=== PATIENT | male | born 1940 | race Caucasian/White ===

== ENCOUNTER 2021-07-12 20:42 | Inpatient (IN) | payer MEDICARE, OTHER ==
[~2021-07-12] VITALS: Ht 175.3 cm; Wt 102.2 kg
--- NOTE | 2021-07-12 21:00 | NUR ---
Dr. Warren at bedside.
--- NOTE | 2021-07-12 21:04 | NUR ---
RT at bedside.
--- NOTE | 2021-07-12 21:10 | NUR ---
Xray at bedside.
[2021-07-12] MEDS ORDERED: PANT20TA2 PO (22:13)
[2021-07-12] MEDS ORDERED: CHOL1TAB4 PO (22:13)
[2021-07-12] MEDS ORDERED: ATOR40TA PO (22:13)
[2021-07-12] MEDS ORDERED: CRAN425C6 PO (22:13)
[2021-07-12] MEDS ORDERED: ACET-73 PO (22:13)
[2021-07-12] MEDS ORDERED: ACET-2154 PO (22:13)
[2021-07-12] MEDS ORDERED: MIRT-93 PO (22:13)
[2021-07-12] MEDS ORDERED: GUAI237L83 PO (22:13)
[2021-07-12] MEDS ORDERED: ASCO500C18 PO (22:13)
[2021-07-12] MEDS ORDERED: DOCU100C36 PO (22:13)
[2021-07-12] MEDS ORDERED: NA P133E RC (22:13)
[2021-07-12] MEDS ORDERED: MAGN400O6 PO (22:13)
[2021-07-12] MEDS ORDERED: THIA100T74 PO (22:13)
[2021-07-12] MEDS ORDERED: AMIO200T5 PO (22:13)
[2021-07-12] MEDS ORDERED: LEVO75TA7 PO (22:13)
[2021-07-12] MEDS ORDERED: MULT-594 PO (22:13)
[2021-07-12] MEDS ORDERED: GUAI5SYR4 GT (22:13)
[2021-07-12] MEDS ORDERED: BISA10SU61 RC (22:13)
[2021-07-12] MEDS ORDERED: DEXT15DR6 EACHEYE (22:13)
[2021-07-12] MEDS ORDERED: PIPERACILLIN SODIUM/TAZOBACTAM 3.375 G in IV DEXTROSE 5% 50 ML IV ONE (22:45)
[2021-07-12 22:52] LABS: ALANINE AMINOTRANSFERASE 22 U/L (16-63); ALKALINE PHOSPHATASE 128 U/L (50-136); ASPARTATE AMINOTRANSFERASE 35 U/L (15-37); BILIRUBIN,TOTAL 0.9 mg/dL (0.2-1.0); CARBON DIOXIDE 18 mmol/L (21-32); CHLORIDE 119 mmol/L (98-107); CREATINE KINASE, TOTAL 141 U/L (39-308); CREATININE 2.1 mg/dL (0.6-1.3); GLUCOSE 179 mg/dL (74-106); LACTATE DEHYDROGENASE 385 U/L (85-227); POTASSIUM 3.5 mmol/L (3.5-5.1); TOTAL PROTEIN, SERUM 8.1 g/dL (6.4-8.2); UREA NITROGEN, BLOOD 62 mg/dL (7-18)
[2021-07-12 22:59] LABS: HEMATOCRIT 41.1 % (36.7-47.1); MEAN CORPUSCULAR HEMOGLOBIN 29.3 uug (23.8-33.4); MEAN CORPUSCULAR VOLUME 89.4 fL (73.0-96.2); PLATELET COUNT (AUTO) 160 K/uL (152-348)
[2021-07-12] MEDS ORDERED: PIPERACILLIN/TAZOBACTAM/D5W 0 ML IV ONE (23:02)
[2021-07-12] MEDS ORDERED: IV D5W 1000ML 1,000 ML IV ONE (23:15)
--- NOTE | 2021-07-12 23:50 | NUR ---
Family at bedside.
[2021-07-13] MEDS ORDERED: ONDANSETRON 4 MG/2 ML VIAL IV ONE (00:15)
[2021-07-13] MEDS ORDERED: MORPHINE SULFATE 4 MG/1 ML DISP.SYRIN IV ONE (00:15)
[2021-07-13] MEDS ORDERED: MORPHINE SULFATE 4 MG/1 ML DISP.SYRIN ONE (00:23)
[2021-07-13] MEDS ORDERED: ONDANSETRON 4 MG/2 ML VIAL ONE (00:23)
[2021-07-13] MEDS ORDERED: ENOXAPARIN SODIUM 60 MG/0.6 ML DISP.SYRIN SQ ONE ×3 (00:30→21:11)
--- NOTE | 2021-07-13 00:30 | NUR ---
Dr. Warren spoke with patient's son, Agusto Guardado, per son, pt is DNR/DNI.
--- NOTE | 2021-07-13 00:45 | NUR ---
Called [facility] to page Dr. Petty.
--- NOTE | 2021-07-13 01:14 | NUR ---
Dr. Warren on panel call with Dr. Dinah Petty.
[2021-07-13] MEDS ORDERED: MAGNESIUM HYDROXIDE 30 ML LIQUID UDC PO PRN ×2 (01:45→02:00)
[2021-07-13] MEDS ORDERED: BISACODYL 10 MG SUPP.RECT RC PRN (01:45)
[2021-07-13] MEDS ORDERED: FLEET ENEMA 133 ML BOTTLE RC PRN (01:45)
--- NOTE | 2021-07-13 01:55 | NUR ---
PATIENT PLACED ON BI/PAP @ 21:12 - WITH FULL LARGE MASK, ORDER BY DR ISAACS, PT NOT VERY RESPONSIVE, INITIAL SETTINGS ON BI/PAP 15.5 \ RR20,100%, PT BREATHING VERY RAPID, SAT 88-93% .Ty SHIRLEYP Addendum: 07/13/21 at 0157 by HENRIQUE DENIS RT Amended: Links added.
[2021-07-13] MEDS ORDERED: MORPHINE SULFATE 2 MG/1 ML DISP.SYRIN IV PRN (02:00)
[2021-07-13] MEDS ORDERED: Z GUARD REMEDY PASTE 57 GM TUBE TOP PRN (02:00)
[2021-07-13] MEDS ORDERED: IV 1/2NS 1000 ML 1,000 ML IV PRN (02:00)
[2021-07-13] MEDS ORDERED: PIPERACILLIN SODIUM/TAZOBACTAM 3.375 G in IV DEXTROSE 5% 50 ML IV SCH ×2 (05:00→14:00)
[2021-07-13] MEDS: PANTOPRAZOLE SODIUM 40 MG TABLET.DR PO SCH (07:00)
--- NOTE | 2021-07-13 07:00 | NUR ---
recieved pt in bed, monitor on, reading sinus rate of 105. pt on bipap, 100%, 22, epap 6, ipap 10. no sign of distress. pt non- responsive to verbal stimuli.
[2021-07-13] MEDS ORDERED: PIPERACILLIN/TAZOBACTAM/D5W 50 ML IV ONE (08:24)
[2021-07-13] MEDS: PIPERACILLIN SODIUM/TAZOBACTAM 3.375 G in IV DEXTROSE 5% 100 ML IV SCH ×2 (08:28→16:36)
[2021-07-13] MEDS ORDERED: DEXAMETHASONE SOD PHOSPHATE 10 MG INJ ONE ×2 (08:38→09:19)
[2021-07-13] MEDS: AMIODARONE HCL 200 MG TABLET PO SCH (09:00)
[2021-07-13] MEDS: DOCUSATE SODIUM 100 MG CAPSULE PO SCH ×2 (09:00→17:00)
[2021-07-13] MEDS: DEXAMETHASONE SOD PHOSPHATE 4 MG INJ IV SCH (09:11)
[2021-07-13 14:32] LABS: CARBON DIOXIDE 17 mmol/L (21-32); CHLORIDE 121 mmol/L (98-107); CREATININE 3.2 mg/dL (0.6-1.3); GLUCOSE 215 mg/dL (74-106); POTASSIUM 4.3 mmol/L (3.5-5.1)
[2021-07-13 14:34] LABS: UREA NITROGEN, BLOOD 81 mg/dL (7-18)
[2021-07-13 15:10] LABS: ABG HCO3 20.7 mmol/L; ABG PCO2 32.9 mmHg (35.0-45.0); ABG PH 7.416 (7.350-7.450); ABG PO2 161.6 mmHg (75.0-100.0); ABG SITE LEFT RADIAL; ABG TOTAL HEMOGLOBIN 13.3 G/dL (13.5-18.0); COHb 0.2 % (0.5-1.5); MetHb 0.1 % (0.0-1.5); VENT MODE BIPAP
[2021-07-13] MEDS: ATORVASTATIN 40 MG TABLET PO SCH (18:00)
[2021-07-13 18:04] LABS: HEMATOCRIT 38.4 % (36.7-47.1); MEAN CORPUSCULAR HEMOGLOBIN 29.3 uug (23.8-33.4); MEAN CORPUSCULAR VOLUME 87.8 fL (73.0-96.2); PLATELET COUNT (AUTO) 149 K/uL (152-348)
[2021-07-13] MEDS ORDERED: IV D5W 1000ML 1,000 ML IV PRN (19:45)
[2021-07-13] MEDS ORDERED: VANCOMYCIN IV 1,000 MG in IV DEXTROSE 5% 250 ML IV ONE (20:15)
[2021-07-13] MEDS ORDERED: ENOXAPARIN SODIUM 40 MG/0.4 ML DISP.SYRIN SQ SCH (21:00)
[2021-07-13] MEDS ORDERED: VANCOMYCIN IV 200 ML ONE (21:11)
[2021-07-13] MEDS: ENOXAPARIN SODIUM 60 MG/0.6 ML DISP.SYRIN SQ SCH (21:14)
[2021-07-14] MEDS ORDERED: PIPERACILLIN/TAZOBACTAM/D5W 50 ML IV ONE (00:59)
[2021-07-14] MEDS: PIPERACILLIN SODIUM/TAZOBACTAM 3.375 G in IV DEXTROSE 5% 100 ML IV SCH (00:59)
--- NOTE | 2021-07-14 02:28 | NUR ---
PATIENT REMAINS ON BI/PAP, SETTINGS, 15/5 , RR20, FIO2 @ 100%, ADJUST MASK AT TIMES, PT TENDS TO BREATH RAPID AT TIMES.Ty SHIRLEYP Addendum: 07/14/21 at 0229 by HENRIQUE DENIS RT Amended: Links added.
[2021-07-14 05:42] LABS: ABG BASE EXCESS -3.5 mmol/L; ABG HCO3 20.8 mmol/L; ABG PCO2 35.2 mmHg (35.0-45.0); ABG PH 7.389 (7.350-7.450); ABG PO2 105.8 mmHg (75.0-100.0); ABG SITE LEFT FEMORAL; MetHb 0.2 % (0.0-1.5); O2Hb 97.8 % (94.0-97.0); VENT MODE BIPAP
[2021-07-14 06:01] LABS: HEMATOCRIT 38.8 % (36.7-47.1); MEAN CORPUSCULAR VOLUME 89.4 fL (73.0-96.2); PLATELET COUNT (AUTO) 133 K/uL (152-348)
[2021-07-14] MEDS: PANTOPRAZOLE SODIUM 40 MG TABLET.DR PO SCH (07:00)
[2021-07-14] MEDS: IV 1/2NS 1000 ML 1,000 ML IV PRN ×3 (07:00→18:30)
[2021-07-14 07:59] LABS: CARBON DIOXIDE 22 mmol/L (21-32); CHLORIDE 124 mmol/L (98-107); GLUCOSE 168 mg/dL (74-106); MAGNESIUM 2.8 mg/dL (1.8-2.4); PHOSPHOROUS 5.6 mg/dL (2.5-4.9); POTASSIUM 4.2 mmol/L (3.5-5.1)
[2021-07-14 08:07] LABS: UREA NITROGEN, BLOOD 108 mg/dL (7-18)
--- NOTE | 2021-07-14 08:08 | NUR ---
RT AT BEDSIDE, REPLACED THE BIPAP WITH NC 4 LITRE, WILL MONITOR THE PT. PT SEEMS MORE RESPOSIVE, MADE SOME FACIAL MOVEMENT WHEN I GREETED HIM, AND HELD MY HANDS.
--- NOTE | 2021-07-14 08:20 | NUR ---
pernieal hygien provided. diaper fully wet with urine, no bm.
[2021-07-14] MEDS ORDERED: PIPERACILLIN SODIUM/TAZOBACTAM 3.375 G in IV DEXTROSE 5% 100 ML IV SCH (08:30)
--- NOTE | 2021-07-14 08:41 | NUR ---
PT RESTING, NO SIGN OF DISTRESS, SAT 99% ON 2 LITRE VIA NC.
[2021-07-14] MEDS: DOCUSATE SODIUM 100 MG CAPSULE PO SCH ×2 (09:00→17:00)
[2021-07-14] MEDS: AMIODARONE HCL 200 MG TABLET PO SCH (09:00)
[2021-07-14] MEDS: DEXAMETHASONE SOD PHOSPHATE 4 MG INJ IV SCH (09:30)
[2021-07-14] MEDS: ONDANSETRON 4 MG/2 ML VIAL IV PRN (09:37)
[2021-07-14] MEDS ORDERED: DEXAMETHASONE SOD PHOSPHATE 10 MG INJ ONE (09:38)
[2021-07-14] MEDS ORDERED: MORPHINE SULFATE 2 MG/1 ML DISP.SYRIN ONE (09:43)
[2021-07-14] MEDS ORDERED: ONDANSETRON 4 MG/2 ML VIAL ONE (09:43)
[2021-07-14] MEDS: MEROPENEM 500 MG in IV NORMAL SALINE 50 ML IV SCH ×2 (10:12→22:27)
[2021-07-14] MEDS ORDERED: MEROPENEM 500MG/NS 50ML PB ***ER PYXIS ONLY IV ONE ×2 (10:21→22:29)
[2021-07-14 11:30] LABS: ABG BASE EXCESS -2.4 mmol/L; ABG HCO3 21.7 mmol/L; ABG PCO2 34.8 mmHg (35.0-45.0); ABG PH 7.412 (7.350-7.450); ABG PO2 82.5 mmHg (75.0-100.0); ABG SITE LEFT RADIAL; ABG TOTAL HEMOGLOBIN 12.1 G/dL (13.5-18.0); COHb 0.2 % (0.5-1.5); MetHb 0.3 % (0.0-1.5); O2Hb 95.9 % (94.0-97.0); VENT MODE Nasal Cannula
[2021-07-14] MEDS: ATORVASTATIN 40 MG TABLET PO SCH (18:00)
--- NOTE | 2021-07-14 18:40 | NUR ---
AT BEDSIDE TO HANG AN IV BAG, DR. SCHAFER ALSO AT BEDSIDE TO EVALUATRE THE PT, SUDDEN ONSET OF HR 0F 183, SEEMS LIKE SVT ON THE MONITOR. DR SCHAFER ORDERED 6MG IF ADENOSIN IV PUSH, ASSISSTED MD TO PUSH IT.
[2021-07-14] MEDS ORDERED: ADENOSINE 6 MG/2 ML SYR IV ONE (18:46)
--- NOTE | 2021-07-14 18:46 | NUR ---
12 LEAD EKG IS HR 169 AFIB WITH RVR.
[2021-07-14] MEDS ORDERED: AMIODARONE HCL 150 MG/3 ML VIAL IV ONE (18:57)
[2021-07-14] MEDS: AMIODARONE HCL IV 150 MG in IV DEXTROSE 5% 100 ML IV ONE ×2 (19:00→19:06)
--- NOTE | 2021-07-14 19:09 | NUR ---
BEDSIDE MONITOR UNCLEAR, 12 LEAD EKG HR OF 147 SVT.
--- NOTE | 2021-07-14 19:10 | NUR ---
Recieved thorough report from ELVA Woods using SBAR method. Pt had good color and appearance. VSS all day but had a brief period of PSVT then sustained in ST at approx 135-150. Pt is asymtomatic with no diapharesis or sob noted. Pt given adenocard and amniodarone drip Pt is currently at 134bpm holding firm.
[2021-07-14] MEDS ORDERED: IV D5 1/2 NS 1000 ML 1,000 ML IV PRN (19:15)
[2021-07-14] MEDS ORDERED: AMIODARONE HCL IV 150 MG in IV DEXTROSE 5% 100 ML IV ONE (19:30)
[2021-07-14] MEDS: AMIODARONE HCL IV 450 MG in IV DEXTROSE 5% 250 ML IV PRN ×2 (20:00→22:00)
--- NOTE | 2021-07-14 20:32 | NUR ---
Speaking to Pts son yolanda currently updating son on pts status.
[2021-07-14] MEDS: ENOXAPARIN SODIUM 60 MG/0.6 ML DISP.SYRIN SQ SCH (21:47)
[2021-07-14] MEDS ORDERED: ENOXAPARIN SODIUM 60 MG/0.6 ML DISP.SYRIN SQ ONE (21:57)
--- NOTE | 2021-07-15 00:34 | NUR ---
House sup just gave room assignment to pt. Room 318 nurse will be calling report now.
--- NOTE | 2021-07-15 00:46 | NUR ---
Just gave report to Nurse Oliveros using SBAR method. Given the green ligh to go ahead and transport pt, just need to swab for MRSA and will be pushing pt up in [facility].
--- NOTE | 2021-07-15 01:20 | NUR ---
16fr south cath inserted without difficulty. Pt tolerated well with slight pain response upon insertion. There was an immediate return of cloudy yellow output approx 150cc. South secured to leg using included stat-lock. Wet diaper changed to fresh clean diaper upon moving him to the hospital bed. Pt is clean and dry and in pos of comfort in bed CORINNA RN at bedside for initial intake assessment.
--- NOTE | 2021-07-15 01:40 | NUR ---
Admitted a 80 years old male with Dx of PNA. Patient alert to name only. Garbled speech, mainly non-verbal. Flat affect. In no apparent distress. No signs or symptoms of pain or SOB. On O2 at 2LPM via NC in place. O2 sat at 99% at this time. IV site on right FA and right hand intact and patent. Amiodarone drip infusing at 33.3ml/hr. Skin pale and cool to touch. Sinus tachy on tele with HR of 145/min. Caicedo catheter intact and draining via gravity. Routine admission care done. Plan of care initiated. COVID precaution initiated. Safety measure initiated and call light within reached.
[2021-07-15 01:51] VITALS: BP 93/67
--- NOTE | 2021-07-15 02:00 | NUR ---
Amiodarone drip titrated to 0.5mg/min per protocol.
[2021-07-15 04:00] VITALS: BP 102/60
[2021-07-15 05:46] LABS: *BILIRUBIN,URIN NEGATIVE (NEGATIVE); *BLOOD, URINE NEGATIVE (NEGATIVE); *CLARITY,URINE CLEAR (CLEAR); *COLOR,URINE YELLOW (YELLOW); *KETONES,URINE NEGATIVE (NEGATIVE); *UROBILINOGEN,URINE 0.2 E.U./dl (NORMAL); LEUKOCYTE ESTERASE ,URINE NEGATIVE (NEGATIVE); NITRITE, URINE NEGATIVE (NEGATIVE); UGLUCOSE NEGATIVE (NEGATIVE)
--- NOTE | 2021-07-15 05:47 | NUR ---
Patient appears calm and comfortable at this time. In no apparent distress. No signs or symptoms of pain or SOB. On O2 at 2LPM via NC. O2 sat at 96%. Amiodarone drip ongoing. A. fib on tele with HR at 140/min. IV site on right FA and right hand remains intact and patent. Caicedo catheter intact and draining via gravity. Cloudy yellow urine on drainage bag. Caicedo catheter care done. Isolation precaution maintained. Safety measure maintained and call light within reached.
[2021-07-15] MEDS: PANTOPRAZOLE SODIUM 40 MG TABLET.DR PO SCH (06:07)
[2021-07-15 06:36] LABS: ABG BASE EXCESS -2.8 mmol/L; ABG HCO3 20.3 mmol/L; ABG PCO2 30.2 mmHg (35.0-45.0); ABG PH 7.446 (7.350-7.450); ABG PO2 66.7 mmHg (75.0-100.0); ABG SITE LEFT RADIAL; ABG TOTAL HEMOGLOBIN 11.9 G/dL (13.5-18.0); MetHb 0.3 % (0.0-1.5); O2Hb 93.4 % (94.0-97.0); VENT MODE Nasal Cannula
[2021-07-15 06:41] LABS: HEMATOCRIT 35.1 % (36.7-47.1); MEAN CORPUSCULAR HEMOGLOBIN 28.8 uug (23.8-33.4); MEAN CORPUSCULAR VOLUME 87.7 fL (73.0-96.2); PLATELET COUNT (AUTO) 127 K/uL (152-348)
[2021-07-15 06:47] LABS: BACTERIA,URINE NONE SEEN /HPF (NONE SEEN); RBC,URINE 0-3 /HPF (0-3); SQUAMOUS EPITHELIAL CELL,UR FEW /HPF (NONE SEEN); WBC,URINE 0-3 /HPF (0-3)
[2021-07-15 06:59] LABS: CARBON DIOXIDE 24 mmol/L (21-32); CREATININE 2.7 mg/dL (0.6-1.3); GLUCOSE 155 mg/dL (74-106); MAGNESIUM 2.7 mg/dL (1.8-2.4); PHOSPHOROUS 4.3 mg/dL (2.5-4.9); POTASSIUM 3.7 mmol/L (3.5-5.1); VANCOMYCIN,RANDOM 9.8 ug/mL (18.0-26.0)
--- NOTE | 2021-07-15 08:00 | NUR ---
AWAKE ALERT BUT MILDLY CONFUSED, ABLE TO FOLLOW-COMMAND. WITH ON GOING AMIODARONE DRIP PER PROTOCOL. CONTROLLED AFIB ON MONITOR RATE AT 69-75/MIN
[2021-07-15 08:10] VITALS: BP 109/59
[2021-07-15] MEDS: ACETAMINOPHEN 325 MG TABLET PO PRN ×2 (08:18→21:16)
[2021-07-15] MEDS: DOCUSATE SODIUM 100 MG CAPSULE PO SCH ×2 (08:18→16:05)
[2021-07-15] MEDS: DEXAMETHASONE SOD PHOSPHATE 4 MG INJ IV SCH (08:18)
[2021-07-15] MEDS ORDERED: AMIODARONE HCL 200 MG TABLET PO SCH (09:00)
[2021-07-15 09:18] LABS: CHLORIDE 127 mmol/L (98-107); UREA NITROGEN, BLOOD 99 mg/dL (7-18)
[2021-07-15] MEDS ORDERED: VANCOMYCIN IV 1,000 MG in IV DEXTROSE 5% 250 ML IV ONE (09:30)
[2021-07-15] MEDS ORDERED: VANCOMYCIN IV 1,500 MG in IV DEXTROSE 5% 500 ML IV ONE (10:00)
--- NOTE | 2021-07-15 10:00 | NUR ---
SEEN BY DR FERNÁNDEZ NOTED LABS WITH ORDER TO START ON HEPARIN DRIP PER PROTOCOL
[2021-07-15] MEDS: MEROPENEM 500 MG in IV NORMAL SALINE 50 ML IV SCH ×2 (10:13→21:17)
[2021-07-15 12:00] VITALS: BP 124/58
[2021-07-15] MEDS ORDERED: HEPARIN SODIUM,PORCINE 5,000 UNITS/ML VIAL IV ONE (13:30)
[2021-07-15] MEDS: HEPARIN/D5W DRIP 500 ML IV PRN (13:48)
[2021-07-15 16:00] VITALS: BP 98/58
[2021-07-15] MEDS: IV D5W 1000ML 1,000 ML IV PRN (16:05)
[2021-07-15] MEDS: ATORVASTATIN 40 MG TABLET PO SCH (16:06)
--- NOTE | 2021-07-15 17:10 | NUR ---
CONTINUE HEPARIN DRIP PER PROTOCOL, NO SS OF BLEEDING CONTROLLED AFIB ON MONITOR
--- NOTE | 2021-07-15 17:11 | NUR ---
NO ACUTE CHANGE FROM MORNING ASSESSMENT. SEEN BY DR HODGE SAID CAN DC AMIODRIP THIS PM PER PROTOCOL. PATIENT WILL START PO AMIODARONE THIS EVENING
--- NOTE | 2021-07-15 19:30 | NUR ---
Received pt awake, alert and orientedx3. Pt in no acute distress. Pt on 2L nasal cannula.Pt noted coughing. Safety and comfort provided. Will continue to monitor.
[2021-07-15 20:00] VITALS: BP 101/47
--- NOTE | 2021-07-15 20:30 | NUR ---
Pharmacist called and asked if graphics production specialist did the PTT drawn. Told graphics production specialist not yet. She told me to she will go home and when the result will come out just follow the heparin protocol. Will continue to monitor.
[2021-07-15] MEDS: AMIODARONE HCL 200 MG TABLET PO SCH (21:17)
[2021-07-16] VITALS: BP 120/76
[2021-07-16 04:00] VITALS: BP 109/50
[2021-07-16] MEDS: IV D5W 1000ML 1,000 ML IV PRN ×2 (04:36→17:22)
--- NOTE | 2021-07-16 06:01 | NUR ---
Pt slept intermittently. Pt in no acute distress. Iv intact. Caicedo catheter intact and draining well. Prescribed medication given and pt tolerated it well. Pt on 2l nasal cannula. Pt turned and repositioned. All needs are met. Pt stable. Pt Heparin no change based on Heparin protocol for result PTT 64.9. Will endorse to incoming nurse for continuity of care.
[2021-07-16] MEDS: PANTOPRAZOLE SODIUM 40 MG TABLET.DR PO SCH (06:10)
[2021-07-16 07:19] LABS: HEMATOCRIT 35.5 % (36.7-47.1); MEAN CORPUSCULAR HEMOGLOBIN 28.8 uug (23.8-33.4); MEAN CORPUSCULAR VOLUME 90.5 fL (73.0-96.2); PLATELET COUNT (AUTO) 122 K/uL (152-348)
[2021-07-16 07:42] LABS: CREATININE 1.7 mg/dL (0.6-1.3); UREA NITROGEN, BLOOD 76 mg/dL (7-18); VANCOMYCIN,RANDOM 7.8 ug/mL (18.0-26.0)
[2021-07-16 07:43] LABS: CHLORIDE 121 mmol/L (98-107); POTASSIUM 3.6 mmol/L (3.5-5.1)
[2021-07-16 07:44] LABS: MAGNESIUM 2.5 mg/dL (1.8-2.4); PHOSPHOROUS 3.8 mg/dL (2.5-4.9)
[2021-07-16 07:49] LABS: CARBON DIOXIDE 18 mmol/L (21-32); GLUCOSE 147 mg/dL (74-106)
--- NOTE | 2021-07-16 08:00 | NUR ---
AWAKE ALERT BUT CONFUSED X3 NO SS OF PAIN OR RESPIRATORY DISTRESS. O2 AT 2L SATURATING 95%. CONTINUE ON HEPARIN DRIP PER PROTOCOL
[2021-07-16] MEDS: DOCUSATE SODIUM 100 MG CAPSULE PO SCH ×2 (08:48→17:00)
[2021-07-16] MEDS: AMIODARONE HCL 200 MG TABLET PO SCH ×2 (08:48→21:24)
[2021-07-16] MEDS: METHIMAZOLE 5 MG TABLET PO SCH (08:49)
[2021-07-16] MEDS: MEROPENEM 500 MG in IV NORMAL SALINE 50 ML IV SCH (09:47)
--- NOTE | 2021-07-16 09:51 | NUR ---
WOUND CARE CONSULT: REVIEWED CHART, NURSING DOCUMENTATION AND PHOTOS WHICH INDICATE SOME BUTTOCK REDNESS, LOWER EXTREMITY DISCOLORATION AND RT UPPER ARM RAISED AREA. DEFER TO PMD FOR RT UPPER ARM. RECOMMENDATIONS MADE FOR SKIN PROTECTION. DISCUSSED WITH NURSING STAFF. MD IN AGREEMENT WITH PLAN OF CARE.
--- NOTE | 2021-07-16 10:30 | NUR ---
SEEN BY DR HODGE MADE AWARE ABOUT HEPARIN DRIP AND SAID OK TO STOP HEPARIN DRIP AND WILL START ON LOVENOX. FURTHER ADDED OK TO CHANGE STATUS TO TELE
[2021-07-16] MEDS: HEPARIN/D5W DRIP 500 ML IV PRN (11:44)
[2021-07-16] MEDS ORDERED: VANCOMYCIN IV 1,250 MG in IV DEXTROSE 5% 250 ML IV SCH (12:00)
[2021-07-16 12:05] VITALS: BP 138/78
--- NOTE | 2021-07-16 12:45 | NUR ---
SEEN BY HOSPITALIST DISCUSSED PLAN OF CARE. PATIENT CONTINUE FAILING ST EVAL. WILL DISCUSSED WITH SON REGARDING PLAN FOR FEEDING
--- NOTE | 2021-07-16 13:59 | NUR ---
SEEN BY DR HODGE FOR FOLLOW-UP. HEPARIN DRIP DISCONTINUED AND SAID OK TO CHANGE STATUS TO TELE
--- NOTE | 2021-07-16 15:09 | NUR ---
Clinical Social Work Note SW consult was requested for the purpose of continuity of care. SW was unable to meet with patient [id number] due to his positive COVID status. SW attempted to call patient in his room, but got no answer. VALERIY spoke with patients son Ashish Guardado ([phone]) to discuss patients care after discharge. Patients son stated that patient was previously at [facility] and he will be returning there upon discharge. SW informed patients son that she will inform case management coordinator of this information. Patients son stated that there was not any more resources he was in need of. Plan: SW will inform case management coordinator of patient returning to [facility] upon discharge.
[2021-07-16 16:21] VITALS: BP 110/58
[2021-07-16] MEDS: ATORVASTATIN 40 MG TABLET PO SCH (17:21)
[2021-07-16] MEDS ORDERED: ENOXAPARIN SODIUM 100 MG/ML DISP.SYRIN SQ SCH ×2 (18:00)
--- NOTE | 2021-07-16 18:00 | NUR ---
TRIED TO INSERT NGT BUT UNSUCCESSFUL, INSERTED VIA MOUTH FR 14 FOLLOWED WITH CXR FOR PLACEMENT, AWAITING RESULTS
--- NOTE | 2021-07-16 19:30 | NUR ---
Received patient lying in bed awake, alert, and confused. Bilateral mitten restraints on for safety and to avoid pulling of lines, mitten restrains order active. Skin around mittens intact. On 3L nasal cannula saturating 95%. Caicedo intact and draining yellow urine well. Left upper arm midline patent and intact running D5 at 100ml/hr. Oral gastric tube intact and patent. All needs attended to, no signs of pain or distress. Bed in the lowest position and bed alarm on. Will continue to monitor. Addendum: 07/17/21 at 0651 by JEANNETTE BAXTER RN Code status DNR
[2021-07-16] MEDS ORDERED: MEROPENEM 1 G in IV NORMAL SALINE 100 ML IV SCH (21:00)
[2021-07-16] MEDS ORDERED: CEFEPIME HCL 1 G in IV DEXTROSE 5% 50 ML IV SCH (21:00)
[2021-07-16 21:14] VITALS: BP 169/50
[2021-07-16] MEDS: CEFEPIME HCL 2 G in IV DEXTROSE 5% 100 ML IV SCH (21:24)
[2021-07-16 23:00] VITALS: BP 111/48
--- NOTE | 2021-07-17 | NUR ---
Patient sleeping intermittently. Sinus rythm 70 on tele monitor. Skin around mittens intact and assessed periodically. Patient turned 2QH. No signs of pain or distress. All needs attended to. Bed in the lowest position with alarm on. Will continue to monitor.
[2021-07-17 00:22] VITALS: BP 113/46
--- NOTE | 2021-07-17 02:20 | NUR ---
Patient converted from SR to controlled a-fib 70 on tele monitor. No signs or symptoms of pain or distress. Will continue to monitor
--- NOTE | 2021-07-17 03:30 | NUR ---
Patient displaying wet cough, O2 saturation 92%. Airway suctioned, removing thick mucus. Patient tolerated suctioning well, O2 saturation went up to 96%.
[2021-07-17 04:15] VITALS: BP 122/42
[2021-07-17] MEDS: IV D5W 1000ML 1,000 ML IV PRN ×2 (04:18→17:16)
[2021-07-17 06:41] LABS: HEMATOCRIT 36.6 % (36.7-47.1); MEAN CORPUSCULAR HEMOGLOBIN 29.2 uug (23.8-33.4); MEAN CORPUSCULAR VOLUME 88.5 fL (73.0-96.2); PLATELET COUNT (AUTO) 130 K/uL (152-348)
--- NOTE | 2021-07-17 06:52 | NUR ---
Patient sleeping intermittently through the night. Alert and confused. Sinus rythm 69 on tele monitor. 3L NC saturating 97%. Skin around mittens intact and assessed periodically. Patient turned 2QH. Left upper arm midline intact and patent, running D5 at 100ml/hr. Oral gastric tube patent and intact. No signs of pain or distress. All needs attended to. Kept NPO throughout shift. Bed in the lowest position with alarm on. Will endorse to AM shift.
[2021-07-17] MEDS: PANTOPRAZOLE SODIUM 40 MG TABLET.DR PO SCH (07:00)
[2021-07-17 07:22] LABS: CREATININE 1.3 mg/dL (0.6-1.3); MAGNESIUM 2.6 mg/dL (1.8-2.4); PHOSPHOROUS 3.7 mg/dL (2.5-4.9); POTASSIUM 3.2 mmol/L (3.5-5.1)
[2021-07-17 08:10] LABS: THYROID STIMULATING HORMONE 0.008 mIU/mL (0.358-3.740)
[2021-07-17] MEDS ORDERED: ENOXAPARIN SODIUM 100 MG/ML DISP.SYRIN SQ SCH (09:00)
[2021-07-17] MEDS ORDERED: POTASSIUM CHLORIDE 20 MEQ TAB.PRT.SR PO ONE (09:15)
[2021-07-17] MEDS: DOCUSATE SODIUM 100 MG CAPSULE PO SCH ×2 (09:20→17:34)
[2021-07-17] MEDS: CEFEPIME HCL 2 G in IV DEXTROSE 5% 100 ML IV SCH ×2 (09:20→20:16)
[2021-07-17] MEDS: AMIODARONE HCL 200 MG TABLET PO SCH ×2 (09:22→21:00)
[2021-07-17] MEDS: APIXABAN 5 MG TABLET PO SCH ×2 (09:24→21:00)
[2021-07-17] MEDS: METHIMAZOLE 5 MG TABLET PO SCH (09:28)
[2021-07-17 11:09] VITALS: BP 158/63
[2021-07-17 16:21] VITALS: BP 97/73
--- NOTE | 2021-07-17 17:00 | NUR ---
OGT DC'D OUT OF PLACE. PROFUSE COUGHING WITH EVERY MED. ADMINISTERED. SUCTIONED PRN.
[2021-07-17] MEDS: ATORVASTATIN 40 MG TABLET PO SCH (17:34)
[2021-07-18] MEDS: PANTOPRAZOLE SODIUM 40 MG TABLET.DR PO SCH (06:26)
[2021-07-18] MEDS: IV D5W 1000ML 1,000 ML IV PRN (06:47)
--- NOTE | 2021-07-18 07:01 | NUR ---
Pt AOx1, response to voice and touch. No distress noted. IV site intact. SR on tele. Caicedo draining yellow urine. NG tube attempted to be inserted for meds but nasal deviation present. Will endorse to day shift.
[2021-07-18 07:10] LABS: HEMATOCRIT 33.2 % (36.7-47.1); MEAN CORPUSCULAR HEMOGLOBIN 28.9 uug (23.8-33.4); MEAN CORPUSCULAR VOLUME 87.3 fL (73.0-96.2); PLATELET COUNT (AUTO) 109 K/uL (152-348)
[2021-07-18 07:26] LABS: CREATININE 1.1 mg/dL (0.6-1.3); MAGNESIUM 2.1 mg/dL (1.8-2.4)
[2021-07-18] MEDS: APIXABAN 5 MG TABLET PO SCH ×2 (09:00→20:27)
[2021-07-18] MEDS: AMIODARONE HCL 200 MG TABLET PO SCH (09:00)
[2021-07-18] MEDS: DOCUSATE SODIUM 100 MG CAPSULE PO SCH ×2 (09:00→17:00)
[2021-07-18] MEDS: CEFEPIME HCL 2 G in IV DEXTROSE 5% 100 ML IV SCH ×2 (09:09→20:29)
[2021-07-18] MEDS: POTASSIUM CHLORIDE 50 ML IV SCH ×6 (10:36→14:58)
[2021-07-18 11:26] VITALS: BP 154/49
[2021-07-18 15:58] VITALS: BP 74/37
[2021-07-18] MEDS: ATORVASTATIN 40 MG TABLET PO SCH (17:17)
[2021-07-18 21:05] VITALS: BP 145/44
[2021-07-19] MEDS: IV D5W 1000ML 1,000 ML IV PRN ×2 (02:14→17:29)
[2021-07-19 04:20] VITALS: BP 140/50
--- NOTE | 2021-07-19 05:42 | NUR ---
Slept throughout the night. Pt confused and unable to engage in meaningful conversation. Scheduled for PEG tube placement today. Consent signed and in chart. IV site intact. Caicedo draining to gravity. Will endorse to day shift.
[2021-07-19] MEDS: PANTOPRAZOLE SODIUM 40 MG TABLET.DR PO SCH (06:25)
[2021-07-19] MEDS: CEFEPIME HCL 2 G in IV DEXTROSE 5% 100 ML IV SCH ×2 (08:21→20:27)
[2021-07-19 08:46] LABS: HEMATOCRIT 36.8 % (36.7-47.1); MEAN CORPUSCULAR HEMOGLOBIN 28.9 uug (23.8-33.4); MEAN CORPUSCULAR VOLUME 88.2 fL (73.0-96.2); PLATELET COUNT (AUTO) 122 K/uL (152-348)
[2021-07-19] MEDS ORDERED: KETAMINE HCL 500 MG/10 ML INJ ONE (08:59)
[2021-07-19] MEDS ORDERED: METHIMAZOLE 5 MG TABLET PO SCH (09:00)
--- NOTE | 2021-07-19 09:00 | NUR ---
TO SURGERY VIA BED. MORE ALERT THIS AM. ABLE TO VERBALIZE A FEW WORDS. STILL VERY CONFUSED.
[2021-07-19] MEDS ORDERED: PROPOFOL 200 MG/20 ML BOTTLE IV ONE (09:26)
[2021-07-19] MEDS ORDERED: LIDOCAINE-MPF 2% 5 ML VIAL IJ ONE (09:26)
[2021-07-19 09:27] LABS: MAGNESIUM 2.2 mg/dL (1.8-2.4); PHOSPHOROUS 3.7 mg/dL (2.5-4.9); POTASSIUM 3.6 mmol/L (3.5-5.1)
[2021-07-19] MEDS ORDERED: ACETAMINOPHEN 325 MG TABLET GT PRN (10:23)
[2021-07-19] MEDS ORDERED: MAGNESIUM HYDROXIDE 30 ML LIQUID UDC GT PRN (10:24)
--- NOTE | 2021-07-19 10:45 | NUR ---
RECEIVED FROM RR. DROWSY. AROUSES EASILY. GT IN PLACE. INC. SMALL SOFT STOOL. LINEN CHANGED. BUTTOCKS CLEANSED WITH NS, PATTED DRY, REMEDY Z APPLIED FOLLOWED BY MEPELEX.
--- NOTE | 2021-07-19 11:30 | NUR ---
ABDOMINAL BINDER PLACED ON.
[2021-07-19 12:38] VITALS: BP 97/42
[2021-07-19 16:00] VITALS: BP 117/48
[2021-07-19] MEDS: ATORVASTATIN 40 MG TABLET GT SCH (17:06)
[2021-07-19] MEDS: DOCUSATE SODIUM 100 MG/10 ML LIQUID UDC GT SCH (17:06)
[2021-07-19] MEDS: APIXABAN 5 MG TABLET GT SCH (20:27)
[2021-07-19 22:22] VITALS: BP 155/78
[2021-07-20 05:25] VITALS: BP 132/60
--- NOTE | 2021-07-20 05:34 | NUR ---
Slept throughout the night. IV site intact. GT in place with abdominal binder on. Caicedo draining to gravity.
[2021-07-20] MEDS: PANTOPRAZOLE ORAL SUSPENSION 40 MG SUSPDR.PKT GT SCH (06:43)
--- NOTE | 2021-07-20 08:00 | NUR ---
Morning care done by SIGNALER. NOTED scrum wound much more opened compared to pix taken. Frequent turn q 2 hr implemented. F/u on [facility] bed reordered. Pt is in no acute distress.
[2021-07-20] MEDS: APIXABAN 5 MG TABLET GT SCH ×2 (09:37→22:07)
[2021-07-20] MEDS: DOCUSATE SODIUM 100 MG/10 ML LIQUID UDC GT SCH ×2 (09:37→16:55)
[2021-07-20] MEDS: CEFEPIME HCL 2 G in IV DEXTROSE 5% 100 ML IV SCH (09:41)
[2021-07-20] MEDS: METHIMAZOLE 5 MG TABLET GT SCH (09:41)
[2021-07-20] MEDS: IV D5W 1000ML 1,000 ML IV PRN (09:43)
[2021-07-20 11:21] VITALS: BP 147/53
[2021-07-20 11:38] VITALS: BP 147/53
[2021-07-20] MEDS ORDERED: VITAL AF 1.2 1,000 ML LIQUID GT PRN (12:30)
[2021-07-20 12:48] LABS: HEMATOCRIT 36.9 % (36.7-47.1); MEAN CORPUSCULAR HEMOGLOBIN 28.8 uug (23.8-33.4); MEAN CORPUSCULAR VOLUME 86.9 fL (73.0-96.2); PLATELET COUNT (AUTO) 153 K/uL (152-348)
--- NOTE | 2021-07-20 14:00 | NUR ---
Started GTUBE Feeding per RD recommendation vital @ 10ml/hr. Placement audible in stomach.
[2021-07-20 15:12] VITALS: BP 117/44
[2021-07-20] MEDS: ATORVASTATIN 40 MG TABLET GT SCH (16:55)
--- NOTE | 2021-07-20 18:30 | NUR ---
Pt tolerating feeding increased to 20cc/hr goal rate of 70 x 22hrs. No residual noted.
[2021-07-20 20:45] VITALS: BP 111/76
[2021-07-21] MEDS: IV D5W 1000ML 1,000 ML IV PRN (01:25)
[2021-07-21 04:25] VITALS: BP 137/46
[2021-07-21] MEDS: PANTOPRAZOLE ORAL SUSPENSION 40 MG SUSPDR.PKT GT SCH (06:01)
--- NOTE | 2021-07-21 06:56 | NUR ---
Pt slept throughout the night. On room air saturating at 98%. HOB kept elevated. Arousable to name and touch. NPO. PEG tube intact and running Vital AF 1.2 duglas. Increased q4h by 10ml, tolerated. 22:00 at 30mls/hr, 02:00 at 40 mls/hr, and 06:00 at 50mls/hr. CYNTHIA midline intact and running D5w at 75mls/hr. F/C 900ml in total emptied. Call lights within reach, safety measures maintained. Will endorse to am shift.
[2021-07-21 07:11] LABS: HEMATOCRIT 34.3 % (36.7-47.1); MEAN CORPUSCULAR HEMOGLOBIN 29.2 uug (23.8-33.4); MEAN CORPUSCULAR VOLUME 86.5 fL (73.0-96.2); PLATELET COUNT (AUTO) 184 K/uL (152-348)
[2021-07-21 07:25] LABS: MAGNESIUM 1.7 mg/dL (1.8-2.4); PHOSPHOROUS 3.3 mg/dL (2.5-4.9); POTASSIUM 2.9 mmol/L (3.5-5.1)
--- NOTE | 2021-07-21 08:00 | NUR ---
Aspiration precaution implemented during g-tube feeding. Noted residual of 15cc while at 50cc/hr. pt tolerating feeding will increase accordingly. Turned pt q 2 hrs implemented. L upper midline intact. Pt confused. Pt on r/a @ 95%.
[2021-07-21] MEDS: DOCUSATE SODIUM 100 MG/10 ML LIQUID UDC GT SCH (08:10)
[2021-07-21] MEDS: METHIMAZOLE 5 MG TABLET GT SCH (08:10)
[2021-07-21] MEDS: APIXABAN 5 MG TABLET GT SCH (08:16)
[2021-07-21] MEDS ORDERED: POTASSIUM CHLORIDE 20 MEQ POWDER PACKET GT ONE (08:30)
[2021-07-21] MEDS: POTASSIUM CHLORIDE 50 ML IV SCH ×4 (09:30→13:23)
[2021-07-21] MEDS: MAGNESIUM SULFATE/D5W 100 ML IV SCH ×2 (09:31→10:25)
[2021-07-21] MEDS ORDERED: APIX5TAB GT (09:47)
[2021-07-21] MEDS ORDERED: NUT.237L65 GT (09:47)
[2021-07-21] MEDS ORDERED: METH5TAB34 GT (09:47)
[2021-07-21] MEDS ORDERED: DOCU50LI GT (09:47)
[2021-07-21] MEDS ORDERED: PANT40SU2 GT (09:48)
[2021-07-21] MEDS: ONDANSETRON 4 MG/2 ML VIAL IV PRN ×2 (10:43→10:45)
[2021-07-21 11:28] VITALS: BP 101/44
[2021-07-21 15:17] VITALS: BP 130/50
--- NOTE | 2021-07-21 16:00 | NUR ---
Report given to Vikki at [facility]. Updated pictures of wounds on buttocks, mid left back, and right face scab taken, printed and charted. Pt confused. Pt denies any c/o pain. MID line on left upper arm intact. Abd binder applied for safety and to prevent pt from pulling out his Gtube. Pt is in no acute distress upon discharge. Pt tolerating 70 cc/hr vital AF 1.2 Flushed gtube site with water. G tube clamped.
== END 2021-07-21 16:30 | DRG 871 ==
LOC: ER 20:52 → TRANSITION 07-13 04:26 → TELE-TD3 07-13 04:28 → TELE3 07-16 14:10 → MEDSURG3 07-18 14:25
PROVIDERS: ADMIT Nurse Practitioner Acute Care; ATTEND Registered Nurse
PROC: 5A09357 Assistance with Respiratory Ventilation, Less than 24 Consecutive Hours, Continuous Positive Airway Pressure (ICD-10-PCS; 2021-07-12)
PROC: 05H633Z Insertion of Infusion Device into Left Subclavian Vein, Percutaneous Approach (ICD-10-PCS; 2021-07-15)
PROC: B547ZZA Ultrasonography of Left Subclavian Vein, Guidance (ICD-10-PCS; 2021-07-15)
PROC: 0DH63UZ Insertion of Feeding Device into Stomach, Percutaneous Approach (ICD-10-PCS; principal; 2021-07-19)
PROC: 5A09457 Assistance with Respiratory Ventilation, 24-96 Consecutive Hours, Continuous Positive Airway Pressure (ICD-10-PCS; 2021-07-19)
DX: A41.9 Sepsis, unspecified organism (principal); J96.01 Acute respiratory failure with hypoxia; J18.9 Pneumonia, unspecified organism; I21.A1 Myocardial infarction type 2; N17.0 Acute kidney failure with tubular necrosis; R65.21 Severe sepsis with septic shock; I26.99 Other pulmonary embolism without acute cor pulmonale; E87.0 Hyperosmolality and hypernatremia; G93.40 Encephalopathy, unspecified; D68.69 Other thrombophilia; I50.32 Chronic diastolic (congestive) heart failure; Z66 Do not resuscitate; D69.6 Thrombocytopenia, unspecified; F41.1 Generalized anxiety disorder; I48.0 Paroxysmal atrial fibrillation; E11.22 Type 2 diabetes mellitus with diabetic chronic kidney disease; E86.1 Hypovolemia; I25.10 Atherosclerotic heart disease of native coronary artery without angina pectoris; E78.5 Hyperlipidemia, unspecified; F32.A Depression, unspecified; F41.9 Anxiety disorder, unspecified; N18.9 Chronic kidney disease, unspecified; E86.0 Dehydration; F03.90 Unspecified dementia, unspecified severity, without behavioral disturbance, psychotic disturbance, mood disturbance, and anxiety; E11.51 Type 2 diabetes mellitus with diabetic peripheral angiopathy without gangrene; Z86.16 Personal history of COVID-19; Z87.01 Personal history of pneumonia (recurrent); Z95.1 Presence of aortocoronary bypass graft; E05.80 Other thyrotoxicosis without thyrotoxic crisis or storm; R13.10 Dysphagia, unspecified; Z20.822 Contact with and (suspected) exposure to COVID-19; K29.70 Gastritis, unspecified, without bleeding; J34.2 Deviated nasal septum; Z74.01 Bed confinement status
CPT/HCPCS: 36415; 36600; 43761; 70030-TC; 70450; 71045; 74018; 83605; 83615; 83735; 84100; 84443; 85025; 85730; 86140; 87040; 87070; 87086; 87400; 93005; 93307; 97161; A4663; A6209; G0378; J0153; J0282; J0692; J1100; J1644; J1650; J2185; J2270; J2405; J2543; J3370; J3475; J3480; J3490; J7030; J7042; J7060; J7070; J7120; U0003